=== PATIENT | male | born 1985 | race Caucasian/White ===

== ENCOUNTER 2020-12-09 11:13 | Inpatient (IN) | payer MEDICARE, MEDICAID ==
[2020-12-09] MEDS ORDERED: LORazepam 2 MG/ML SDV ONE (11:34)
[2020-12-09] MEDS ORDERED: Haloperidol Lactate 5 MG/ML SDV ONE ×2 (11:34→12:10)
[2020-12-09] MEDS ORDERED: cefTRIAXone 2 GM Vial ONE (12:11)
[2020-12-09 12:37] LABS: ANION GAP 20.4 mmol/L (5-15); CHLORIDE,CL 103 mmol/L (98-107); SODIUM,NA 138 mmol/L (136-145)
[2020-12-09] MEDS ORDERED: Sodium Chloride 0.9% 1,000 ML IV ONE (13:12)
[2020-12-09] MEDS ORDERED: Sodium Chloride 0.9% 1,000 ML IV SCH (13:15)
--- NOTE | 2020-12-09 13:21 | EDM.PDOC ---
ED HPI GENERAL MEDICAL PROBLEM - General Chief Complaint: Behavioral/Psych Time Seen by Provider: 12/09/20 12:11 Source of Information: Reports: Patient History Limitations: Reports: No Limitations - History of Present Illness INITIAL COMMENTS - FREE TEXT/NARRATIVE: Pt. presents to ER from [facility] via EMS. Nursing staff states that the patient has been minimally responsive and responding only to sternal rub this AM. Pt. had a fall yesterday from his wheelchair. They state that the patient is been gradually getting more somnolent throughout the day. Pt. has a suprapubic catheter that they state was changed this AM. The urine in the bag is extremely concentrated, brown colored, foul smelling and opaque. It is unclear when this was noted (pre or post subrapubic change). EMS states that on their arrival, pt. was combative and resistive to care. They were unable to obtain vital signs and had to restrain him to keep him on the cot. They did not administer any sedation medications. Pt. was extremely combative but awake, yelling at staff on arrival. He was attempting to spit at staff and was attempting to hit staff in face/groin. Pt. has a history of TBI, borderline intellectual functioning, dementia with behavioral disturbance, schizophrenia, neurogenic bladder (with suprapubic catheter), epilepsy, and paraplegia. It is unclear specifically what his baseline is, but he does self feed. Pt. is a DNR/DNI. Onset: Today Onset Date: 12/08/20 Location: Reports: Head, Generalized Associated Symptoms: Reports: Confusion Other Treatments FUNDING COORDINATOR: none - Related Data Allergies Allergy/AdvReac Type Severity Reaction Status Date / Time No Known Allergies Allergy Verified 12/09/20 12:20 Past Medical History Cardiovascular History: Reports: Hypertension Gastrointestinal History: Reports: Fecal Incontinence, GERD Genitourinary History: Reports: Neurogenic Bladder, Urinary Incontinence, UTI, Recurrent Neurological History: Reports: Brain Injury, Seizure Psychiatric History: Reports: Aggressive/Hostile Behaviors, Anxiety, Dementia, Developmental Delay, Schizophrenia Other Oncologic History: adrenal gland - Infectious Disease History Infectious Disease History: Reports: Novel Coronavirus - Past Surgical History Male Surgical History: Reports: Suprapubic Catheter Placement Social & Family History - Tobacco Use Tobacco Use Status *Q: Unknown Ever Used Tobacco ED ROS GENERAL - Review of Systems Review Of Systems: Unable To Obtain Reason Not Obtained: See HPI Constitutional: Reports: Fever ED EXAM, GENERAL - Physical Exam Exam: See Below Exam Limited By: No Limitations General Appearance: Alert, WD/WN, No Apparent Distress Eye Exam: Bilateral Eye: EOMI, Normal Fundi, Normal Inspection, PERRL Throat/Mouth: Normal Inspection, Normal Lips, Normal Oropharynx, No Airway Compromise Head: Other (hematoma to forehead) Neck: Normal Inspection, Supple, Full Range of Motion Respiratory/Chest: No Respiratory Distress, Lungs Clear, Normal Breath Sounds, No Accessory Muscle Use, Chest Non-Tender Cardiovascular: Normal Peripheral Pulses, Regular Rate, Rhythm, No Edema, No JVD Peripheral Pulses: 4+: Radial (L) GI/Abdominal: Soft, Non-Tender, No Distention, No Mass (Male) Exam: Other (suprapubic catheter with brown, thick, foul smelling urine in the bag. Attempting to determine when this started.) Rectal (Males) Exam: Deferred Back Exam: Normal Inspection, Full Range of Motion Extremities: Normal Inspection, Normal Range of Motion, Other (atrophy to lower extremities consistent with paraplegia.) Neurological: Confused, Disoriented, Other (combative, resistive to assessment and care) Psychiatric: Normal Affect, Normal Mood Skin Exam: Warm, Dry, Intact, Normal Color, No Rash Lymphatic: No Adenopathy Course - Vital Signs Last Recorded V/S: Last Vital Signs Temp 36.9 C 12/09/20 13:10 Pulse 80 12/09/20 13:10 Resp 20 12/09/20 13:10 BP 93/51 L 12/09/20 13:10 Pulse Ox 95 12/09/20 13:10 - Orders/Labs/Meds Orders: Active Orders 24 hr Category Date Time Status Patient Status [ADT] Routine ADT 12/09/20 13:27 Ordered Head wo Cont [CT] Stat Exams 12/09/20 12:42 Ordered CORONAVIRUS COVID-19 SNOW [MOLEC] Stat Lab 12/09/20 13:21 Ordered CULTURE BLOOD [BC] Routine Lab 12/09/20 11:59 Stop Req CULTURE BLOOD [BC] Stat Lab 12/09/20 13:03 Ordered CULTURE URINE [RM] Routine Lab 12/09/20 11:40 Received LACTATE SEPSIS W/ REFLEX [CHEM] Stat Lab 12/09/20 13:04 Ordered Sodium Chloride 0.9% @ Wide Open(1,000ml) Med 12/09/20 13:12 Ordered Sodium Chloride 0.9% [Normal Saline] 1,000 ml IV ONETIME Sodium Chloride 0.9% [Normal Saline] 1,000 ml Med 12/09/20 13:15 Ordered IV ASDIRECTED Blood Culture x2 Reflex Set [OM.PC] Stat Oth 12/09/20 13:03 Ordered Medication Orders Sodium Chloride (Normal Saline) 1,000 mls @ 999 mls/hr IV ONETIME ONE Stop: 12/09/20 14:12 Last Admin: 12/09/20 12:15 Dose: 999 mls/hr Documented by: Sodium Chloride (Normal Saline) 1,000 mls @ 250 mls/hr IV ASDIRECTED LUANNE Last Admin: 12/09/20 13:16 Dose: 250 mls/hr Documented by: Labs: Laboratory Tests 12/09/20 12/09/20 12/09/20 Range/Units 11:40 11:59 11:59 WBC 18.3 H (4.0-10.0) x10^3/uL RBC 4.15 L (4.5-6.0) x10^6/uL Hgb 13.4 L (14.0-18.0) g/dL Hct 38.9 L (40.0-52.0) % MCV 93.7 H (78.0-93.0) fL MCH 32.3 H (26.0-32.0) pg MCHC 34.4 (32.0-36.0) g/dL RDW Coeff of Tasneem 13.8 (10.0-15.0) % Plt Count 121 L (130-400) x10^3/uL Add Manual Diff Yes Neutrophils % (Manual) 73 (50-80) % Band Neutrophils % 15 H (0-6) % Reactive Lymphs % 4 H (0) % Monocytes % (Manual) 6 (2-11) % Metamyelocytes % 2 H (0) % Vacuolated Monocytes Few Toxic Granulation 1+ slight H Platelet Estimate Decreased L Macrocytosis 1+ slight H PT (9.9-12.5) SEC INR (2.0-3.5) APTT (25.6-32.8) SEC Sodium 138 (136-145) mmol/L Potassium 4.4 (3.5-5.1) mmol/L Chloride 103 (98-107) mmol/L Carbon Dioxide 19 L (21-32) mmol/L Anion Gap 20.4 H (5-15) mmol/L BUN 44 H (7-18) mg/dL Creatinine 2.3 H (0.70-1.30) mg/dL Est Cr Clr Drug Dosing TNP Estimated GFR (MDRD) 32 Glucose 159 H (70-99) mg/dL Lactic Acid (0.4-2.0) mmol/L Calcium 9.3 (8.5-10.1) mg/dL Corrected Calcium 9.9 (8.5-10.1) mg/dL Magnesium 2.0 (1.8-2.4) mg/dL Total Bilirubin 0.9 (0.2-1.0) mg/dL AST 26 (15-37) U/L ALT 22 (16-63) U/L Alkaline Phosphatase 110 (46-116) U/L C-Reactive Protein 43.3 H (<=0.9) mg/dL Total Protein 7.5 (6.4-8.2) g/dL Albumin 3.2 L (3.4-5.0) g/dL Globulin 4.3 Albumin/Globulin Ratio 0.74 TSH, Ultra Sensitive 1.450 (0.358-3.74) uIU/mL Urine Color Brown H (YELLOW) Urine Appearance Turbid H (CLEAR) Urine pH 6.0 (5.0-8.0) Ur Specific Alicia 1.020 Urine Protein >=300 H (NEGATIVE) mg/dL Urine Glucose (UA) Negative (NEGATIVE) mg/dL Urine Ketones Trace H (NEGATIVE) mg/dL Urine Occult Blood Moderate H (NEGATIVE) Urine Nitrite Negative (NEGATIVE) Urine Bilirubin Small H (NEGATIVE) Urine Urobilinogen 0.2 (0.2) EU/dL Ur Leukocyte Esterase Large H (NEGATIVE) Urine RBC 20-30 H (NOT SEEN) /HPF Urine WBC Packed H (NOT SEEN) /HPF Ur Squamous Epith Cells Not seen (NOT SEEN) /HPF Urine Bacteria Not seen (NOT SEEN) /HPF Urine Mucus Not seen (NOT SEEN) /LPF 12/09/20 12/09/20 Range/Units 11:59 11:59 WBC (4.0-10.0) x10^3/uL RBC (4.5-6.0) x10^6/uL Hgb (14.0-18.0) g/dL Hct (40.0-52.0) % MCV (78.0-93.0) fL MCH (26.0-32.0) pg MCHC (32.0-36.0) g/dL RDW Coeff of Tasneem (10.0-15.0) % Plt Count (130-400) x10^3/uL Add Manual Diff Neutrophils % (Manual) (50-80) % Band Neutrophils % (0-6) % Reactive Lymphs % (0) % Monocytes % (Manual) (2-11) % Metamyelocytes % (0) % Vacuolated Monocytes Toxic Granulation Platelet Estimate Macrocytosis PT 13.2 H (9.9-12.5) SEC INR 1.2 L (2.0-3.5) APTT 32.0 (25.6-32.8) SEC Sodium (136-145) mmol/L Potassium (3.5-5.1) mmol/L Chloride (98-107) mmol/L Carbon Dioxide (21-32) mmol/L Anion Gap (5-15) mmol/L BUN (7-18) mg/dL Creatinine (0.70-1.30) mg/dL Est Cr Clr Drug Dosing Estimated GFR (MDRD) Glucose (70-99) mg/dL Lactic Acid 4.0 H* (0.4-2.0) mmol/L Calcium (8.5-10.1) mg/dL Corrected Calcium (8.5-10.1) mg/dL Magnesium (1.8-2.4) mg/dL Total Bilirubin (0.2-1.0) mg/dL AST (15-37) U/L ALT (16-63) U/L Alkaline Phosphatase (46-116) U/L C-Reactive Protein (<=0.9) mg/dL Total Protein (6.4-8.2) g/dL Albumin (3.4-5.0) g/dL Globulin Albumin/Globulin Ratio TSH, Ultra Sensitive (0.358-3.74) uIU/mL Urine Color (YELLOW) Urine Appearance (CLEAR) Urine pH (5.0-8.0) Ur Specific Alicia Urine Protein (NEGATIVE) mg/dL Urine Glucose (UA) (NEGATIVE) mg/dL Urine Ketones (NEGATIVE) mg/dL Urine Occult Blood (NEGATIVE) Urine Nitrite (NEGATIVE) Urine Bilirubin (NEGATIVE) Urine Urobilinogen (0.2) EU/dL Ur Leukocyte Esterase (NEGATIVE) Urine RBC (NOT SEEN) /HPF Urine WBC (NOT SEEN) /HPF Ur Squamous Epith Cells (NOT SEEN) /HPF Urine Bacteria (NOT SEEN) /HPF Urine Mucus (NOT SEEN) /LPF Meds: Medications Generic Name Dose Route Start Last Admin Trade Name Freq PRN Reason Stop Dose Admin Sodium Chloride 1,000 mls @ 999 mls/hr 12/09/20 13:12 12/09/20 12:15 Normal Saline IV 12/09/20 14:12 999 mls/hr ONETIME ONE Administration Sodium Chloride 1,000 mls @ 250 mls/hr 12/09/20 13:15 12/09/20 13:16 Normal Saline IV 250 mls/hr ASDIRECTED LUANNE Administration Discontinued Medications Generic Name Dose Route Start Last Admin Trade Name Freq PRN Reason Stop Dose Admin Ceftriaxone Sodium Confirm 12/09/20 12:11 12/09/20 12:15 Ceftriaxone 2 Gm Vial Administered 12/09/20 12:12 2 gm Dose Administration 2 gm .ROUTE .STK-MED ONE Haloperidol Lactate Confirm 12/09/20 11:34 Haloperidol Lactate 5 Mg/Ml Sdv Administered 12/09/20 11:35 Dose 5 mg .ROUTE .STK-MED ONE Haloperidol Lactate Confirm 12/09/20 12:10 Haloperidol Lactate 5 Mg/Ml Sdv Administered 12/09/20 12:11 Dose 5 mg .ROUTE .STK-MED ONE Lorazepam Confirm 12/09/20 11:34 Lorazepam 2 Mg/Ml Sdv Administered 12/09/20 11:35 Dose 2 mg .ROUTE .STK-MED ONE - Radiology Interpretation Free Text/Narrative:: CT brain without contrast obtained and was negative for acute pathology. - Re-Assessments/Exams Free Text/Narrative Re-Assessment/Exam: Pt. was extremely combative toward staff on arrival to ER. Pt. has to be physically restrained and was given Haldol 5mg IM and ativan 2mg IM. Pt. did become less combative and IV access was able to be achieved. Initially attempted to access the patient's port but no blood could be aspirated from the port. Pt. was given another 5 mg of haldol IV. Pt. was then much more cooperative and was able to go to CT. Covid 19 swab was obtained and patient became agitated again, attempting to climb out of bed/fight staff. Pt. was given 1 mg of Ativan IV and pt. again was less agitated. To note, pt. does receive ativan, haldol, and zyprexa daily at the special care unit. VS as follows after sedation: BP 140/104, HR 80, RR 20, temp 98.4, O2 sat 98% on RA. Pt. was noted to have a lactic acid of 4.0, WBCs 18.3, and CRP 43.3. He has EVA with creat 2.3 and BUN 44. They were 0.79 and 17 on 10/25/2020, respectively. Pt. was also given rocephin 2gm IV and a liter of normal saline. Pt. was then placed on normal saline at 250ml/hr. for the next liter. Please refer to Greg Rodriguez's orders for further fluid orders. Departure - Departure Time of Disposition: 13:46 Disposition: Home, Self-Care 01 Condition: Critical Clinical Impression: UTI (urinary tract infection), Sepsis, Lactic acidosis, EVA (acute kidney injury) - Discharge Information Referrals: Estella Donahue MD [Primary Care Provider] - Forms: ED Department Discharge Sepsis Event Note (ED) - Evaluation Sepsis Screening Result: No Definite Risk - Focused Exam Vital Signs: Vital Signs Temp Pulse Resp BP Pulse Ox 12/09/20 13:10 36.9 C 80 20 93/51 L 95 12/09/20 12:11 37.4 C 80 20 89/39 L 99 - My Orders Last 24 Hours: My Active Orders 12/09/20 11:40 CULTURE URINE [RM] Routine 12/09/20 11:59 CULTURE BLOOD [BC] Routine 12/09/20 12:42 Head wo Cont [CT] Stat 12/09/20 13:03 CULTURE BLOOD [BC] Stat Blood Culture x2 Reflex Set [OM.PC] Stat 12/09/20 13:04 LACTATE SEPSIS W/ REFLEX [CHEM] Stat 12/09/20 13:12 Sodium Chloride 0.9% @ Wide Open(1,000ml) Sodium Chloride 0.9% [Normal Saline] 1,000 ml IV ONETIME 12/09/20 13:15 Sodium Chloride 0.9% [Normal Saline] 1,000 ml IV ASDIRECTED 12/09/20 13:21 CORONAVIRUS COVID-19 SNOW [MOLEC] Stat 12/09/20 13:27 Patient Status [ADT] Routine - Assessment/Plan Admission H&P: Please use this note as an admission H&P Last 24 Hours: My Active Orders 12/09/20 11:40 CULTURE URINE [RM] Routine 12/09/20 11:59 CULTURE BLOOD [BC] Routine 12/09/20 12:42 Head wo Cont [CT] Stat 12/09/20 13:03 CULTURE BLOOD [BC] Stat Blood Culture x2 Reflex Set [OM.PC] Stat 12/09/20 13:04 LACTATE SEPSIS W/ REFLEX [CHEM] Stat 12/09/20 13:12 Sodium Chloride 0.9% @ Wide Open(1,000ml) Sodium Chloride 0.9% [Normal Saline] 1,000 ml IV ONETIME 12/09/20 13:15 Sodium Chloride 0.9% [Normal Saline] 1,000 ml IV ASDIRECTED 12/09/20 13:21 CORONAVIRUS COVID-19 SNOW [MOLEC] Stat 12/09/20 13:27 Patient Status [ADT] Routine Plan: Pt. will be admitted acutely. Continue IV fluids at 250ml/hr for now. Sepsis protocol and lactic acid reflex orders are in place. Continue IV rocephin 2gm daily. We are attempting to determine when the patient's urine became so purulent. It certainly seems like this has been present for some time. Will keep his suprapubic catheter in place for now unless we find this started today. Pt. is a code 2, DNR/DNI. correction staff is notifying family. He is critical ly ill. Will continue with IV ativan if needed for further sedation. RAJ Diana will be admitting the patient. Please refer to his orders.
--- NOTE | 2020-12-09 13:29 | CT ---
[id number] CT/CT Head WO IV EXAM: NONCONTRAST HEAD CT INDICATION: DECREASED LOC, HISTORY OF TBI. COMPARISON: None. DISCUSSION: Streak artifact limits assessment of the inferior frontal and temporal lobes bilaterally. Right anterior scalp soft tissue swelling versus scarring. No acute hemorrhage, mass effect, midline shift, hydrocephalus, extra-axial collection or acute territorial infarct is identified. The orbits and paranasal sinuses are unremarkable. IMPRESSION: 1. Right scalp soft tissue swelling. 2. Otherwise negative exam. Alex Brownlee MD 12/09/20 [id number] Thank you for allowing us to participate in the care of your patient.
[2020-12-09] MEDS ORDERED: LORazepam 2 MG/ML SDV IVPUSH ONE ×2 (13:36→15:49)
[2020-12-09] MEDS ORDERED: Ondansetron 4 MG/2 ML SDV IV PRN (14:06)
[2020-12-09] MEDS ORDERED: Sodium Chloride 0.9% 1,000 ML IV STA (14:11)
[2020-12-09] MEDS ORDERED: Flumazenil 0.1 MG/ML 5 ML MDV IVPUSH PRN ×2 (14:17→15:49)
[2020-12-09] MEDS ORDERED: diphenhydrAMINE 25 MG Cap PO PRN (14:30)
[2020-12-09] MEDS ORDERED: Fosphenytoin 500 MG.PE/10 ML SDV IM PRN (14:30)
[2020-12-09] MEDS ORDERED: Acetaminophen 325 MG Tab PO PRN (14:30)
[2020-12-09] MEDS ORDERED: Heparin Sodium 100 Units/ML 3 ML Syringe FLUSH SCH (14:30)
[2020-12-09] MEDS ORDERED: Baclofen 10 MG Tab PO PRN (14:30)
[2020-12-09] MEDS ORDERED: Levofloxacin/Dextrose 5%-Water 500 MG in Premix Bag 1 BAG IV ONE (14:45)
[2020-12-09] MEDS: Sodium Chloride 0.9% 1,000 ML IV SCH ×2 (15:31→23:09)
[2020-12-09] MEDS: Haloperidol Lactate 5 MG/ML SDV IV PRN ×5 (15:37→23:09)
[2020-12-09] MEDS: LORazepam 2 MG/ML SDV IVPUSH PRN ×4 (15:40→22:11)
[2020-12-09] MEDS ORDERED: Haloperidol Lactate 5 MG/ML SDV IV STA (15:48)
[2020-12-09] MEDS ORDERED: Phenytoin 100 MG Cap.ER PO SCH (18:00)
[2020-12-09] MEDS: Gemfibrozil 600 MG Tab PO SCH (19:50)
[2020-12-09] MEDS ORDERED: CLOZAPINE 200 MG PO SCH (20:00)
[2020-12-09] MEDS: diphenhydrAMINE 25 MG Cap PO SCH (22:49)
[2020-12-09] MEDS: Nystatin Crm 30 GM Tube TOP SCH (22:49)
[2020-12-09] MEDS: Baclofen 10 MG Tab PO SCH (22:49)
[2020-12-09] MEDS: Lactulose Soln 10 GM/15 ML 30 ML UD Cup PO SCH (22:49)
[2020-12-10] MEDS: LORazepam 2 MG/ML SDV IVPUSH PRN ×4 (01:13→08:19)
[2020-12-10] MEDS: Sodium Chloride 0.9% 1,000 ML IV SCH ×2 (03:56→08:23)
[2020-12-10] MEDS: Haloperidol Lactate 5 MG/ML SDV IV PRN ×2 (07:52→09:50)
[2020-12-10] MEDS ORDERED: OLANZapine 10 MG Tab PO SCH (08:00)
[2020-12-10] MEDS ORDERED: Ascorbic Acid 500 MG Tab PO SCH (08:00)
[2020-12-10] MEDS ORDERED: Pantoprazole 40 MG Tab.CR PO SCH (08:00)
[2020-12-10] MEDS ORDERED: Propranolol 60 MG Cap.ER PO SCH (08:00)
[2020-12-10] MEDS ORDERED: Phenytoin 100 MG Cap.ER PO SCH ×2 (08:00→16:00)
[2020-12-10] MEDS ORDERED: Lithium Carbonate 450 MG Tab.ER PO SCH (08:00)
[2020-12-10] MEDS: Sodium Chloride 0.9% 10 ML Syringe FLUSH PRN ×2 (08:20→09:50)
[2020-12-10 08:48] LABS: ANION GAP 17.5 mmol/L (5-15)
[2020-12-10] MEDS: Baclofen 10 MG Tab PO SCH (10:09)
[2020-12-10] MEDS: Gemfibrozil 600 MG Tab PO SCH (10:09)
[2020-12-10] MEDS: Lactulose Soln 10 GM/15 ML 30 ML UD Cup PO SCH (10:09)
[2020-12-10] MEDS: diphenhydrAMINE 25 MG Cap PO SCH (10:09)
[2020-12-10] MEDS: Nystatin Crm 30 GM Tube TOP SCH (10:10)
[2020-12-10] MEDS: PROPRANOLOL 80 MG PO SCH (15:33)
[2020-12-10] MEDS ORDERED: Levofloxacin/Dextrose 5%-Water 500 MG in Premix Bag 1 BAG IV SCH (16:00)
--- NOTE | 2020-12-10 22:07 | DISCH ---
ADMITTING DIAGNOSES: 1. Sepsis secondary to urinary tract infection. 2. Lactic acidosis. 3. Acute kidney injury. 4. Uremia. 5. Leukocytosis. DISCHARGE DIAGNOSES: 1. Sepsis secondary to urinary tract infection. 2. Lactic acidosis. 3. Acute kidney injury. 4. Uremia. 5. Leukocytosis. 6. Bacteremia 7. Closed Head Injury with unknown LOC HISTORY OF PRESENT ILLNESS: This 35-year-old male patient was brought to the emergency room at [facility] from the local [facility] for unresponsiveness and a closed head injury from a fall that happened yesterday. The EMS crew was unable to get vital signs as the patient was very combative. Upon arrival to the emergency room, the patient continued to be combative, therefore he was given IM Haldol and IM lorazepam. Once the patient was more calm, IV was established. Blood was drawn. CT of the head was obtained which did not show any acute pathology. HOSPITAL COURSE: The patient remained combative, requiring IV Haldol and lorazepam. The patient did have fevers on admission, however, these improved. The patient was hypotensive with blood pressures in the 90s, which rebounded to blood pressures in the 100s after fluid resuscitation. The patient did have positive blood cultures, which showed gram-negative rods. The patient's urine also cultured gram-negative rods. The patient was unable to take p.o. medications due to his behavior. The patient was started on Levaquin 500 mg IV daily. CONSULTATION: Case Management. DIET: Regular. ACTIVITY: Bed rest. REVIEW OF SYSTEMS: Unable to obtain due to patient's condition. DISCHARGE PHYSICAL EXAMINATION: Vital Signs: Temperature 98.4, pulse 83, blood pressure 109/56, respiratory rate 24, oxygen saturation 97% on room air. Weight 188.9 pounds, height 5 feet 10 inches. Skin: Intact, warm and dry. The patient does have a black dot on the right heel. Respiratory: Tachypneic, scattered rhonchi throughout. Cardiovascular: Regular rate and rhythm, no murmur. Gastrointestinal: Bowel sounds are hypoactive x4. Abdomen is nontender. Neurological: The patient vacillates between lethargy and being combative. The patient is disoriented. The patient is alert with sternal rubs. DISCHARGE LABORATORY WORK: 1. CBC: White blood cell count 7.5, hemoglobin 10.2, hematocrit 30.4, platelets 102,000. 2. BMP: Sodium 147, potassium 3.5, chloride 115, CO2 of 18, anion gap 17.5, BUN 44, creatinine 1.7, GFR 46, glucose 134, calcium 8.8. 3. CRP 52.3. DISCHARGE MEDICATIONS: 1. Melatonin 6 mg 1 tablet p.o. daily at bedtime. 2. Fish oil 1 tablet p.o. twice daily. 3. Haloperidol 5 mg 1 tablet p.o. every 12 hours. 4. Levocarnitine 1000 mg 1 tablet p.o. 3 times daily. 5. Lorazepam 2 mg 1 tablet p.o. twice daily. 6. Acetaminophen 650 mg 1 tablet p.o. every 4 hours as needed. 7. Vitamin C 500 mg 1 tablet p.o. daily. 8. Baclofen 20 mg 1 tablet p.o. twice daily. 9. Baclofen 20 mg 1 tablet p.o. daily as needed. 10.Clozapine 325 mg 1 tablet p.o. daily. 11.Diphenhydramine 50 mg 1 capsule p.o. twice daily. 12.Diphenhydramine 50 mg 1 capsule p.o. every 4 hours as needed. 13.Fosphenytoin 600 mg IM daily. 14.Lopid 600 mg 1 tablet p.o. twice daily with meals. 15.Lactulose 15 grams p.o. twice daily. 16.[place] 450 mg 1 tablet p.o. daily. 17.Zyprexa 10 mg 1 tablet p.o. daily. 18.Protonix 40 mg 1 tablet p.o. daily. 19.Dilantin 100 mg 1 tablet p.o. daily. 20.Dilantin 300 mg 1 tablet p.o. daily at bedtime. 21.Propranolol 180 mg 1 tablet p.o. daily. 22.Propranolol 200 mg p.o. twice daily. DISCHARGE DIAGNOSES: 1. Sepsis secondary to urinary tract infection. 2. Bacteremia. 3. Closed head injury with unknown LOC. 4. Uremia. 5. Traumatic brain injury with behavioral disturbance. PLAN: Given the patient's positive blood cultures and hypotension, the patient will be transferred to [facility] today. The accepting provider is Dr. Weiner. All questions were answered. The patient was transported via ALS ground. The patient was discharged in hemodynamically stable condition. TB: 12/10/2020 20:18:41 MODL: 12/10/2020 21:59:15 /[id number]
== END 2020-12-10 10:00 | disposition short-term general hospital (02) | DRG 698 ==
LOC: VM.ED 11:13 → VM.MS 13:27
PROVIDERS: ADMIT Nurse Practitioner Family; ATTEND Family Medicine
DX: A41.9 Sepsis, unspecified organism (principal); T83.510A Infection and inflammatory reaction due to cystostomy catheter, initial encounter; A41.50 Gram-negative sepsis, unspecified; S06.9X9A Unspecified intracranial injury with loss of consciousness of unspecified duration, initial encounter; N39.0 Urinary tract infection, site not specified; N17.9 Acute kidney failure, unspecified; E87.2 Acidosis; Z93.6 Other artificial openings of urinary tract status; F91.9 Conduct disorder, unspecified; Z66 Do not resuscitate; F32.9 Major depressive disorder, single episode, unspecified; R62.50 Unspecified lack of expected normal physiological development in childhood; I10 Essential (primary) hypertension; K21.9 Gastro-esophageal reflux disease without esophagitis; Z20.822 Contact with and (suspected) exposure to COVID-19; R15.9 Full incontinence of feces; N31.9 Neuromuscular dysfunction of bladder, unspecified; R32 Unspecified urinary incontinence; F41.9 Anxiety disorder, unspecified; F03.90 Unspecified dementia, unspecified severity, without behavioral disturbance, psychotic disturbance, mood disturbance, and anxiety; F20.9 Schizophrenia, unspecified; W19.XXXA Unspecified fall, initial encounter; Y83.8 Other surgical procedures as the cause of abnormal reaction of the patient, or of later complication, without mention of misadventure at the time of the procedure; Z87.440 Personal history of urinary (tract) infections; Z86.16 Personal history of COVID-19; Z79.899 Other long term (current) drug therapy
CPT/HCPCS: 36415; 70450; 80048; 80053; 81001; 82140; 83605; 83735; 84443; 85025; 85610; 85730; 86140; 87040; 87077; 87086; 87088; 87186; 99223; 99238; 99284; J0696; J1630; J1956; J2060; J7030; Q2009; U0002

== ENCOUNTER 2022-01-21 11:32 | Emergency (ER) | payer MEDICARE, MEDICAID ==
[2022-01-21 12:29] LABS: CHLORIDE,CL 109 mmol/L (98-107); SODIUM,NA 143 mmol/L (136-145)
[2022-01-21 12:30] LABS: ANION GAP 14.9 mmol/L (5-15); ESTIMATED GFR 112 mL/min (>=60)
== END 2022-01-21 14:44 | disposition home or self-care (01) ==
LOC: VM.ED 11:32
DX: R53.83 Other fatigue (principal); I10 Essential (primary) hypertension; K21.9 Gastro-esophageal reflux disease without esophagitis; Z86.16 Personal history of COVID-19; Z79.899 Other long term (current) drug therapy
CPT/HCPCS: 36415; 71045; 80053; 81001; 83605; 83880; 84145; 84484; 85025; 86140; 87040; 87086; 87088; 87186; 99284; 99284-25

== ENCOUNTER 2023-03-21 19:37 | Emergency (ER) | payer MEDICARE, MEDICAID ==
[2023-03-21] MEDS ORDERED: Sodium Chloride 0.9% 10 ML Syringe FLUSH PRN (19:58)
[2023-03-21 20:11] LABS: HEMATOCRIT 36.4 % (40.0-52.0); HEMOGLOBIN 12.5 g/dL (14.0-18.0); IMMATURE GRAN ABSOLUTE AUTO 0.12 x10^3/uL (0.00-0.07); LYMPHOCYTES ABSOLUTE AUTO 1.6 x10^3/uL (1.0-4.8); LYMPHOCYTES PERCENT AUTO 21.9 % (25.0-50.0); MEAN CORPUSCULAR HEMOGLOBIN 32.5 pg (26.0-32.0); MEAN CORPUSCULAR HGB CONC 34.3 g/dL (32.0-36.0); MEAN CORPUSCULAR VOLUME 94.5 fL (78.0-93.0); MONOCYTES ABSOLUTE AUTO 0.6 x10^3/uL (0.0-0.8); MONOCYTES PERCENT AUTO 8.4 % (2.0-11.0); PLATELET COUNT,PLT 147 x10^3/uL (130-400); RED BLOOD CELL COUNT 3.85 x10^6/uL (4.5-6.0); WHITE BLOOD CELL COUNT,WBC 7.3 x10^3/uL (4.0-10.0)
[2023-03-21 20:13] LABS: BILIRUBIN,URINE NEGATIVE (NEGATIVE); COLOR,URINE LIGHT YELLOW (YELLOW); GLUCOSE,URINE NEGATIVE (NEGATIVE); KETONES,URINE NEGATIVE (NEGATIVE); LEUKOCYTE ESTERASE,URINE LARGE (NEGATIVE); NITRITE,URINE NEGATIVE (NEGATIVE); OCCULT BLOOD,URINE NEGATIVE (NEGATIVE); PROTEIN,URINE NEGATIVE (NEGATIVE); UROBILINOGEN,URINE 0.2 EU/dL (0.2)
[2023-03-21 20:20] LABS: APPEARANCE,URINE SLIGHTLY CLOUDY (CLEAR)
[2023-03-21 20:23] LABS: BACTERIA,URINE RARE /HPF (NOT SEEN); MUCUS,URINE OCCASIONAL /LPF (NOT SEEN); RBC,URINE 0-5 /HPF (NOT SEEN); SQUAMOUS EPITHELIAL CELLS,UR NOT SEEN /HPF (NOT SEEN); WBC,URINE 20-30 /HPF (NOT SEEN)
[2023-03-21 20:23] LABS: INR 1.1 (2.0-3.5); PROTHROMBIN TIME 11.7 SEC (9.5-12.2)
[2023-03-21 20:29] LABS: LACTIC ACID 1.2 mmol/L (0.4-2.0)
[2023-03-21 20:38] LABS: A/G RATIO 0.69; ALANINE AMINOTRANSFERASE,ALT 10 U/L (16-63); ALBUMIN 2.9 g/dL (3.4-5.0); ALKALINE PHOSPHATASE 255 U/L (46-116); ASPARTATE AMNIOTRANSFERASE,AST 11 U/L (15-37); BILIRUBIN TOTAL 0.4 mg/dL (0.2-1.0); BLOOD UREA NITROGEN,BUN 32 mg/dL (7-18); C-REACTIVE PROTEIN 1.61 mg/dL (<=0.30); CALCIUM 9.2 mg/dL (8.5-10.1); CARBON DIOXIDE,CO2 23 mmol/L (21-32); CHLORIDE,CL 109 mmol/L (98-107); GLUCOSE RANDOM 119 mg/dL (70-99); MAGNESIUM 2.4 mg/dL (1.8-2.4); POTASSIUM,K 3.9 mmol/L (3.5-5.1); PROTEIN TOTAL,TP 7.1 g/dL (6.4-8.2); SODIUM,NA 144 mmol/L (136-145); TSH ULTRASENSITIVE 1.715 uIU/mL (0.358-3.74)
[2023-03-21 20:39] LABS: ANION GAP 15.9 mmol/L (5-15); ESTIMATED GFR 98 mL/min (>=60)
[2023-03-21] MEDS: cefTRIAXone 1 GM Vial IVPUSH ONE (20:45)
== END 2023-03-21 22:00 ==
LOC: VM.ED 19:37
DX: N39.0 Urinary tract infection, site not specified (principal); E78.00 Pure hypercholesterolemia, unspecified; I10 Essential (primary) hypertension; K21.9 Gastro-esophageal reflux disease without esophagitis; Z79.899 Other long term (current) drug therapy; Z86.16 Personal history of COVID-19
CPT/HCPCS: 36415; 51705; 70450; 71045; 80053; 80178; 81001; 83605; 83735; 84443; 84484; 85025; 85610; 85730; 86140; 87086; 87088; 87186; 93005; 93010; 96374; 99284; 99285; J0696

== ENCOUNTER 2023-11-05 03:19 | Emergency (ER) | payer MEDICARE, MEDICAID | END 2023-11-05 03:42 | LOC: VM.ED 03:19 | DX: T83.028A Displacement of other urinary catheter, initial encounter (principal); I10 Essential (primary) hypertension; E78.00 Pure hypercholesterolemia, unspecified; K21.9 Gastro-esophageal reflux disease without esophagitis; Z86.16 Personal history of COVID-19; Y73.2 Prosthetic and other implants, materials and accessory gastroenterology and urology devices associated with adverse incidents | CPT/HCPCS: 51702; 99283; 99284 ==

== ENCOUNTER 2024-06-13 16:12 | Emergency (ER) | payer MEDICARE, MEDICAID ==
[2024-06-13 16:45] LABS: BASOPHILS PERCENT AUTO 0.1 % (0.2-1.2); HEMATOCRIT 37.6 % (40.0-52.0); HEMOGLOBIN 12.4 g/dL (14.0-18.0); IMMATURE GRAN ABSOLUTE AUTO 0.01 x10^3/uL (0.00-0.07); LYMPHOCYTES ABSOLUTE AUTO 1.5 x10^3/uL (1.0-4.8); LYMPHOCYTES PERCENT AUTO 16.5 % (25.0-50.0); MEAN CORPUSCULAR HEMOGLOBIN 30.5 pg (26.0-32.0); MEAN CORPUSCULAR VOLUME 92.6 fL (78.0-93.0); MONOCYTES PERCENT AUTO 11.1 % (2.0-11.0); NEUTROPHILS ABSOLUTE AUTO 6.4 x10^3/uL (1.8-7.7); NEUTROPHILS PERCENT AUTO 72.2 % (50.0-80.0); PLATELET COUNT,PLT 132 x10^3/uL (130-400); RED BLOOD CELL COUNT 4.06 x10^6/uL (4.5-6.0); WHITE BLOOD CELL COUNT,WBC 8.8 x10^3/uL (4.0-10.0)
[2024-06-13 16:48] LABS: APPEARANCE,URINE SLIGHTLY CLOUDY (CLEAR); BILIRUBIN,URINE NEGATIVE (NEGATIVE); COLOR,URINE YELLOW (YELLOW); GLUCOSE,URINE NEGATIVE (NEGATIVE); KETONES,URINE NEGATIVE (NEGATIVE); LEUKOCYTE ESTERASE,URINE LARGE (NEGATIVE); NITRITE,URINE NEGATIVE (NEGATIVE); OCCULT BLOOD,URINE TRACE-LYSED (NEGATIVE); PROTEIN,URINE NEGATIVE (NEGATIVE); UROBILINOGEN,URINE 0.2 EU/dL (0.2)
[2024-06-13 16:53] LABS: AMPHETAMINE, URINE NEGATIVE (NEGATIVE); BARBITUATES,URINE POSITIVE (NEGATIVE); BENZODIAZEPINES,URINE POSITIVE (NEGATIVE); BUPRENORPHINE,URINE NEGATIVE (NEGATIVE); COCAINE,URINE NEGATIVE (NEGATIVE); MARIJUANA,URINE NEGATIVE (NEGATIVE); METHADONE,URINE NEGATIVE (NEGATIVE); METHAMPHETAMINE,URINE NEGATIVE (NEGATIVE); METHYLENEDIOXYMETHAMP,UR NEGATIVE (NEGATIVE); OPIATES,URINE NEGATIVE (NEGATIVE); OXYCODONE,URINE NEGATIVE (NEGATIVE); PHENCYCLIDINE,URINE NEGATIVE
[2024-06-13 16:58] LABS: BACTERIA,URINE MANY /HPF (NOT SEEN); MUCUS,URINE NOT SEEN /LPF (NOT SEEN); RBC,URINE NOT SEEN /HPF (NOT SEEN); SQUAMOUS EPITHELIAL CELLS,UR FEW /HPF (NOT SEEN)
[2024-06-13 17:15] LABS: A/G RATIO 0.85; ALANINE AMINOTRANSFERASE,ALT 7 U/L (16-63); ALBUMIN 3.4 g/dL (3.4-5.0); ALKALINE PHOSPHATASE 275 U/L (46-116); ASPARTATE AMNIOTRANSFERASE,AST 11 U/L (15-37); BILIRUBIN TOTAL 0.3 mg/dL (0.2-1.0); BLOOD UREA NITROGEN,BUN 39 mg/dL (7-18); CALCIUM 9.6 mg/dL (8.5-10.1); CARBON DIOXIDE,CO2 24 mmol/L (21-32); CHLORIDE,CL 104 mmol/L (98-107); CREATININE 1.1 mg/dL (0.70-1.30); EST CRCL DRUG DOSING (CG) 82.63 mL/min; GLUCOSE RANDOM 112 mg/dL (70-99); MAGNESIUM 1.7 mg/dL (1.8-2.4); POTASSIUM,K 4.2 mmol/L (3.5-5.1); PROTEIN TOTAL,TP 7.4 g/dL (6.4-8.2); SODIUM,NA 140 mmol/L (136-145); TSH ULTRASENSITIVE 1.774 uIU/mL (0.358-3.74)
[2024-06-13 17:18] LABS: ACETAMINOPHEN 0 ug/ml (10-30); ANION GAP 16.2 mmol/L (5-15); ESTIMATED GFR 86 mL/min (>=60); ETHANOL BLOOD MEDICAL < 3 mg/dL (0-3)
[2024-06-13] MEDS: Magnesium Oxide 400 MG Tab PO ONE (17:57)
== END 2024-06-13 18:11 ==
LOC: VM.ED 16:12 → SUPCPDRO 16:12 → VM.ED 18:11
DX: F20.9 Schizophrenia, unspecified (principal); E83.42 Hypomagnesemia; R79.89 Other specified abnormal findings of blood chemistry; I10 Essential (primary) hypertension; Z86.16 Personal history of COVID-19; Z79.899 Other long term (current) drug therapy
CPT/HCPCS: 36415; 80053; 80143; 80179; 80305-QW; 80307; 81001; 83735; 84443; 85025; 87086; 87088; 87186; 99284; 99285; A9270-GY

== ENCOUNTER 2024-08-25 12:11 | Emergency (ER) | payer MEDICARE, MEDICAID ==
[2024-08-25 13:28] LABS: HEMATOCRIT 39.5 % (40.0-52.0); IMMATURE GRAN ABSOLUTE AUTO 0.03 x10^3/uL (0.00-0.07); LYMPHOCYTES ABSOLUTE AUTO 1.3 x10^3/uL (1.0-4.8); LYMPHOCYTES PERCENT AUTO 16.3 % (25.0-50.0); MEAN CORPUSCULAR HEMOGLOBIN 30.1 pg (26.0-32.0); MEAN CORPUSCULAR HGB CONC 32.9 g/dL (32.0-36.0); MEAN CORPUSCULAR VOLUME 91.4 fL (78.0-93.0); MONOCYTES ABSOLUTE AUTO 0.7 x10^3/uL (0.0-0.8); MONOCYTES PERCENT AUTO 8.9 % (2.0-11.0); NEUTROPHILS ABSOLUTE AUTO 5.9 x10^3/uL (1.8-7.7); NEUTROPHILS PERCENT AUTO 74.4 % (50.0-80.0); PLATELET COUNT,PLT 139 x10^3/uL (130-400); RED BLOOD CELL COUNT 4.32 x10^6/uL (4.5-6.0)
[2024-08-25] MEDS: Lactated Ringers 1,000 ML IV ONE (13:30)
[2024-08-25 13:43] LABS: A/G RATIO 0.67; ALANINE AMINOTRANSFERASE,ALT 13 U/L (16-63); ALBUMIN 3.5 g/dL (3.4-5.0); ALKALINE PHOSPHATASE 360 U/L (46-116); ANION GAP 18.1 mmol/L (5-15); ASPARTATE AMNIOTRANSFERASE,AST 17 U/L (15-37); BILIRUBIN TOTAL 0.5 mg/dL (0.2-1.0); BLOOD UREA NITROGEN,BUN 32 mg/dL (7-18); C-REACTIVE PROTEIN 1.45 mg/dL (<=0.50); CALCIUM 10.7 mg/dL (8.5-10.1); CARBON DIOXIDE,CO2 24 mmol/L (21-32); CHLORIDE,CL 110 mmol/L (98-107); CREATININE 1.3 mg/dL (0.70-1.30); ESTIMATED GFR 71 mL/min (>=60); GLUCOSE RANDOM 105 mg/dL (70-99); LIPASE 241 U/L (19-71); POTASSIUM,K 4.1 mmol/L (3.5-5.1); PROTEIN TOTAL,TP 8.7 g/dL (6.4-8.2); SODIUM,NA 148 mmol/L (136-145)
[2024-08-25 14:06] LABS: APPEARANCE,URINE CLOUDY (CLEAR); BILIRUBIN,URINE NEGATIVE (NEGATIVE); COLOR,URINE YELLOW (YELLOW); GLUCOSE,URINE NEGATIVE (NEGATIVE); KETONES,URINE NEGATIVE (NEGATIVE); LEUKOCYTE ESTERASE,URINE LARGE (NEGATIVE); NITRITE,URINE NEGATIVE (NEGATIVE); OCCULT BLOOD,URINE LARGE (NEGATIVE); PH,URINE 8.5 (5.0-8.0); PROTEIN,URINE >=300 mg/dL (NEGATIVE); UROBILINOGEN,URINE 0.2 EU/dL (0.2)
[2024-08-25 14:13] LABS: AMORPHOUS SEDIMENT,URINE MODERATE; BACTERIA,URINE MANY /HPF (NOT SEEN); WBC,URINE 20-30 /HPF (NOT SEEN)
[2024-08-25 14:14] LABS: SQUAMOUS EPITHELIAL CELLS,UR FEW /HPF (NOT SEEN)
[2024-08-25] MEDS: Ciprofloxacin in D5W 400 MG in Premix Bag 1 BAG IV ONE (14:20)
[2024-08-25 14:22] LABS: PRO B-TYPE NATRIUR PEPT,BNPPRO 75 pg/mL (<=125)
== END 2024-08-25 16:52 ==
LOC: VM.ED 12:11
DX: E86.0 Dehydration (principal); N39.0 Urinary tract infection, site not specified; L89.90 Pressure ulcer of unspecified site, unspecified stage; I10 Essential (primary) hypertension; K21.9 Gastro-esophageal reflux disease without esophagitis; Z86.16 Personal history of COVID-19; Z79.899 Other long term (current) drug therapy
CPT/HCPCS: 36415; 71045; 74176; 80053; 81001; 83605; 83690; 83880; 84484; 85025; 86140; 87040; 87086; 87088; 87186; 96361; 96365; 99284; 99285-25; J0744; J7120

== ENCOUNTER 2024-11-11 13:16 | Inpatient (IN) | payer MEDICARE, MEDICAID ==
[2024-11-11 13:34] LABS: EOSINOPHILS PERCENT AUTO 0.1 % (0.0-4.0); HEMATOCRIT 33.2 % (40.0-52.0); HEMOGLOBIN 11.1 g/dL (14.0-18.0); IMMATURE GRAN ABSOLUTE AUTO 0.03 x10^3/uL (0.00-0.07); LYMPHOCYTES ABSOLUTE AUTO 1.1 x10^3/uL (1.0-4.8); LYMPHOCYTES PERCENT AUTO 11.1 % (25.0-50.0); MEAN CORPUSCULAR HEMOGLOBIN 30.8 pg (26.0-32.0); MEAN CORPUSCULAR HGB CONC 33.4 g/dL (32.0-36.0); MEAN CORPUSCULAR VOLUME 92.2 fL (78.0-93.0); MONOCYTES ABSOLUTE AUTO 0.6 x10^3/uL (0.0-0.8); MONOCYTES PERCENT AUTO 5.3 % (2.0-11.0); NEUTROPHILS ABSOLUTE AUTO 8.6 x10^3/uL (1.8-7.7); NEUTROPHILS PERCENT AUTO 83.2 % (50.0-80.0); PLATELET COUNT,PLT 149 x10^3/uL (130-400); WHITE BLOOD CELL COUNT,WBC 10.3 x10^3/uL (4.0-10.0)
[2024-11-11 13:40] LABS: HCO3 VENOUS,POC 20 mmol/L (22-29); O2 SATURATION VENOUS,POC 92 %; PCO2 VENOUS,POC 35 mmHg (41-51); PH VENOUS,POC 7.36 pH (7.32-7.43); PO2 VENOUS,POC 65 mmHg
[2024-11-11] MEDS: Lactated Ringers 1,000 ML IV SCH ×2 (13:45→18:29)
[2024-11-11] MEDS: LORazepam 2 MG/ML SDV IVPUSH ONE (14:00)
[2024-11-11 14:03] LABS: A/G RATIO 0.65; ALANINE AMINOTRANSFERASE,ALT 8 U/L (16-63); ALBUMIN 3.1 g/dL (3.4-5.0); ALKALINE PHOSPHATASE 239 U/L (46-116); ANION GAP 13.9 mmol/L (5-15); ASPARTATE AMNIOTRANSFERASE,AST 13 U/L (15-37); BILIRUBIN TOTAL 0.4 mg/dL (0.2-1.0); BLOOD UREA NITROGEN,BUN 31 mg/dL (7-18); CALCIUM 10.6 mg/dL (8.5-10.1); CARBON DIOXIDE,CO2 25 mmol/L (21-32); CHLORIDE,CL 110 mmol/L (98-107); CREATININE 1.1 mg/dL (0.70-1.30); ESTIMATED GFR 86 mL/min (>=60); GLUCOSE RANDOM 123 mg/dL (70-99); MAGNESIUM 2.1 mg/dL (1.8-2.4); POTASSIUM,K 3.9 mmol/L (3.5-5.1); PROTEIN TOTAL,TP 7.9 g/dL (6.4-8.2); SODIUM,NA 145 mmol/L (136-145)
[2024-11-11] MEDS: cefTRIAXone 2 GM Vial IVPUSH ONE (14:30)
[2024-11-11] MEDS: Azithromycin 500 MG in Sodium Chloride 0.9% 250 ML IV ONE (14:59)
[2024-11-11] MEDS ORDERED: Acetaminophen 325 MG Tab PO PRN (16:45)
[2024-11-11] MEDS ORDERED: Lactated Ringers 1,000 ML IV SCH (17:15)
[2024-11-11] MEDS ORDERED: Fosphenytoin 500 MG.PE/10 ML SDV IM PRN (17:17)
[2024-11-11] MEDS ORDERED: Flumazenil 0.1 MG/ML 5 ML MDV IVPUSH PRN (17:17)
[2024-11-11] MEDS: Piperacillin/Tazobactam 4.5 GM in Sodium Chloride 0.9% 100 ML IV SCH (17:36)
[2024-11-12] MEDS: Albuterol 0.083% 2.5 MG/3 ML Neb Soln NEB PRN (03:06)
[2024-11-12] MEDS: LORazepam 2 MG/ML SDV ONE (04:56)
[2024-11-12] MEDS: VANCOmycin 1.25 GM/250 ML 1.25 GM in Premix Bag 1 BAG IV ONE (05:24)
[2024-11-12 05:33] LABS: BASE EXCESS ARTERIAL,POC -8 mmol/L ((-2)-3); HCO3 ARTERIAL,POC 17.9 mmol/L (21-28); O2 SATURATION ARTERIAL,POC 77.5 % (94-98); PCO2 ARTERIAL,POC 31 mmHg (35-48); PH ARTERIAL,POC 7.37 pH (7.35-7.45); PO2 ARTERIAL,POC 43 mmHg (83-108); TCO2 ARTERIAL,POC 17.2 mmol/L (22-29)
[2024-11-12 07:10] LABS: BASOPHILS PERCENT AUTO 0.1 % (0.2-1.2); EOSINOPHILS PERCENT AUTO 0.1 % (0.0-4.0); HEMATOCRIT 31.2 % (40.0-52.0); HEMOGLOBIN 10.4 g/dL (14.0-18.0); IMMATURE GRAN ABSOLUTE AUTO 0.06 x10^3/uL (0.00-0.07); LYMPHOCYTES ABSOLUTE AUTO 1.3 x10^3/uL (1.0-4.8); MEAN CORPUSCULAR HEMOGLOBIN 31.1 pg (26.0-32.0); MEAN CORPUSCULAR HGB CONC 33.3 g/dL (32.0-36.0); MEAN CORPUSCULAR VOLUME 93.4 fL (78.0-93.0); MONOCYTES ABSOLUTE AUTO 0.6 x10^3/uL (0.0-0.8); MONOCYTES PERCENT AUTO 4.4 % (2.0-11.0); NEUTROPHILS ABSOLUTE AUTO 12.6 x10^3/uL (1.8-7.7); PLATELET COUNT,PLT 151 x10^3/uL (130-400); RED BLOOD CELL COUNT 3.34 x10^6/uL (4.5-6.0); WHITE BLOOD CELL COUNT,WBC 14.6 x10^3/uL (4.0-10.0)
[2024-11-12 07:33] LABS: A/G RATIO 0.65; ALBUMIN 2.6 g/dL (3.4-5.0); BILIRUBIN TOTAL 0.5 mg/dL (0.2-1.0); CALCIUM 9.5 mg/dL (8.5-10.1); CREATININE 0.9 mg/dL (0.70-1.30); EST CRCL DRUG DOSING (CG) 104.23 mL/min; POTASSIUM,K 3.5 mmol/L (3.5-5.1); PROTEIN TOTAL,TP 6.6 g/dL (6.4-8.2)
[2024-11-12 07:37] LABS: ANION GAP 15.5 mmol/L (5-15)
[2024-11-12] MEDS: Enoxaparin 40 MG/0.4 ML Syringe SUBCUT SCH (08:34)
[2024-11-12] MEDS: Phenytoin 100 MG Cap.ER PO SCH ×2 (10:31→16:44)
[2024-11-12] MEDS: Iopamidol 755 Mg/ML 100 ML Bottle IVPUSH ONE (11:16)
[2024-11-12] MEDS: Lithium Carbonate 450 MG Tab.ER PO SCH (11:38)
[2024-11-12] MEDS ORDERED: Azithromycin 500 MG in Sodium Chloride 0.9% 250 ML IV SCH (14:25)
[2024-11-12] MEDS: VANCOmycin 1.25 GM/250 ML 1.25 GM in Premix Bag 1 BAG IV SCH (17:37)
[2024-11-12] MEDS: Lactulose Soln 10 GM/15 ML 15 ML UD Cup PO SCH (20:47)
[2024-11-12] MEDS: Cranberry 500 MG Cap PO SCH (20:48)
[2024-11-12] MEDS: Fish Oil/Omega-3 Fatty Acids 1 Gm Cap PO SCH (20:48)
[2024-11-12] MEDS: Baclofen 10 MG Tab PO SCH (20:48)
[2024-11-13 06:09] LABS: BASE EXCESS ARTERIAL,POC -14 mmol/L ((-2)-3); HCO3 ARTERIAL,POC 14.1 mmol/L (21-28); O2 SATURATION ARTERIAL,POC 98.4 % (94-98); PCO2 ARTERIAL,POC 35 mmHg (35-48); PH ARTERIAL,POC 7.21 pH (7.35-7.45); PO2 ARTERIAL,POC 134 mmHg (83-108); TCO2 ARTERIAL,POC 13.7 mmol/L (22-29)
[2024-11-13] MEDS: Furosemide 20 MG/2 ML VIAL IV ONE ×2 (07:03→10:23)
[2024-11-13 08:05] LABS: HEMATOCRIT 31.5 % (40.0-52.0); HEMOGLOBIN 10.3 g/dL (14.0-18.0); IMMATURE GRAN ABSOLUTE AUTO 0.05 x10^3/uL (0.00-0.07); MEAN CORPUSCULAR HEMOGLOBIN 31.6 pg (26.0-32.0); MEAN CORPUSCULAR HGB CONC 32.7 g/dL (32.0-36.0); MEAN CORPUSCULAR VOLUME 96.6 fL (78.0-93.0); MONOCYTES ABSOLUTE AUTO 0.6 x10^3/uL (0.0-0.8); MONOCYTES PERCENT AUTO 4.8 % (2.0-11.0); NEUTROPHILS PERCENT AUTO 86.8 % (50.0-80.0); PLATELET COUNT,PLT 127 x10^3/uL (130-400); RED BLOOD CELL COUNT 3.26 x10^6/uL (4.5-6.0); WHITE BLOOD CELL COUNT,WBC 12.7 x10^3/uL (4.0-10.0)
[2024-11-13 08:43] LABS: A/G RATIO 0.62; ALANINE AMINOTRANSFERASE,ALT < 6 U/L (16-63); ALBUMIN 2.6 g/dL (3.4-5.0); ALKALINE PHOSPHATASE 178 U/L (46-116); ANION GAP 26.4 mmol/L (5-15); ASPARTATE AMNIOTRANSFERASE,AST 12 U/L (15-37); BILIRUBIN TOTAL 0.7 mg/dL (0.2-1.0); BLOOD UREA NITROGEN,BUN 18 mg/dL (7-18); CALCIUM 9.5 mg/dL (8.5-10.1); CARBON DIOXIDE,CO2 16 mmol/L (21-32); CHLORIDE,CL 113 mmol/L (98-107); CREATININE 1.2 mg/dL (0.70-1.30); ESTIMATED GFR 78 mL/min (>=60); GLUCOSE RANDOM 100 mg/dL (70-99); POTASSIUM,K 3.4 mmol/L (3.5-5.1); PROTEIN TOTAL,TP 6.8 g/dL (6.4-8.2); SODIUM,NA 152 mmol/L (136-145)
[2024-11-13] MEDS: Propranolol 60 MG Cap.ER PO SCH (10:49)
[2024-11-13] MEDS: Mirabegron 25 MG Tab Extended Release PO SCH (10:49)
[2024-11-13] MEDS: D-Mannose 500 MG Cap PO SCH (10:49)
[2024-11-13] MEDS: Pantoprazole 40 MG Tab.CR PO SCH (10:49)
[2024-11-13] MEDS: Folic Acid 1 MG Tab PO SCH (10:49)
[2024-11-13] MEDS: FLUoxetine 20 MG Cap PO SCH (10:50)
[2024-11-13] MEDS: OLANZapine 10 MG Tab PO SCH (10:50)
[2024-11-13] MEDS: Ascorbic Acid 500 MG Tab PO SCH (10:50)
[2024-11-13] MEDS: LORazepam 2 MG/ML SDV IVPUSH PRN (12:21)
[2024-11-13] MEDS: Furosemide 40 MG/4 ML VIAL IVPUSH ONE (21:04)
[2024-11-13 21:52] LABS: BASE EXCESS ARTERIAL,POC -21 mmol/L ((-2)-3); HCO3 ARTERIAL,POC 8.9 mmol/L (21-28); PCO2 ARTERIAL,POC 27 mmHg (35-48); PH ARTERIAL,POC 7.12 pH (7.35-7.45); PO2 ARTERIAL,POC 79 mmHg (83-108); TCO2 ARTERIAL,POC 8.5 mmol/L (22-29)
[2024-11-14 07:51] LABS: BASE EXCESS ARTERIAL,POC -21 mmol/L ((-2)-3); HCO3 ARTERIAL,POC 8.7 mmol/L (21-28); PCO2 ARTERIAL,POC 26 mmHg (35-48); PH ARTERIAL,POC 7.13 pH (7.35-7.45); PO2 ARTERIAL,POC 105 mmHg (83-108); TCO2 ARTERIAL,POC 8.4 mmol/L (22-29)
[2024-11-14 08:38] LABS: BASOPHILS PERCENT AUTO 0.1 % (0.2-1.2); HEMATOCRIT 36.4 % (40.0-52.0); HEMOGLOBIN 11.3 g/dL (14.0-18.0); IMMATURE GRAN ABSOLUTE AUTO 0.13 x10^3/uL (0.00-0.07); LYMPHOCYTES ABSOLUTE AUTO 1.5 x10^3/uL (1.0-4.8); LYMPHOCYTES PERCENT AUTO 9.7 % (25.0-50.0); MEAN CORPUSCULAR HEMOGLOBIN 30.9 pg (26.0-32.0); MEAN CORPUSCULAR VOLUME 99.5 fL (78.0-93.0); MONOCYTES ABSOLUTE AUTO 1.1 x10^3/uL (0.0-0.8); MONOCYTES PERCENT AUTO 6.7 % (2.0-11.0); NEUTROPHILS PERCENT AUTO 82.7 % (50.0-80.0); PLATELET COUNT,PLT 162 x10^3/uL (130-400); RED BLOOD CELL COUNT 3.66 x10^6/uL (4.5-6.0); WHITE BLOOD CELL COUNT,WBC 15.7 x10^3/uL (4.0-10.0)
[2024-11-14 08:51] LABS: A/G RATIO 0.6; ALBUMIN 2.9 g/dL (3.4-5.0); ANION GAP 35.5 mmol/L (5-15); BILIRUBIN TOTAL 0.8 mg/dL (0.2-1.0); CALCIUM 9.6 mg/dL (8.5-10.1); EST CRCL DRUG DOSING (CG) 34.3 mL/min; POTASSIUM,K 3.5 mmol/L (3.5-5.1); PROTEIN TOTAL,TP 7.7 g/dL (6.4-8.2)
[2024-11-14 09:11] LABS: CREATININE 2.6 mg/dL (0.70-1.30)
[2024-11-14 09:40] LABS: VANCOMYCIN RANDOM 94.8 ug/mL (5.0-10.0)
[2024-11-14] MEDS: Sodium Chloride 0.45% 1,000 ML IV SCH (10:26)
[2024-11-14] MEDS: Sodium Chloride 0.45% 1,000 ML IV ONE (17:59)
[2024-11-14] MEDS ORDERED: Acetaminophen 325 MG Supp RECTAL PRN (19:45)
[2024-11-14] MEDS: LEVOCARNITINE 500 MG PO SCH (20:12)
[2024-11-15] MEDS ORDERED: Sodium Chloride 0.45% 500 ML IV SCH (05:15)
[2024-11-15] MEDS: Sodium Chloride 0.45% 1,000 ML IV SCH (05:51)
[2024-11-15 07:18] LABS: CALCIUM 8.4 mg/dL (8.5-10.1); EST CRCL DRUG DOSING (CG) 20.7 mL/min; POTASSIUM,K 3.3 mmol/L (3.5-5.1)
[2024-11-15 07:19] LABS: ANION GAP 25.3 mmol/L (5-15)
[2024-11-15 07:20] LABS: CREATININE 4.4 mg/dL (0.70-1.30)
[2024-11-15 07:34] LABS: BASOPHILS PERCENT AUTO 0.1 % (0.2-1.2); HEMATOCRIT 29.2 % (40.0-52.0); HEMOGLOBIN 9.2 g/dL (14.0-18.0); IMMATURE GRAN ABSOLUTE AUTO 0.06 x10^3/uL (0.00-0.07); LYMPHOCYTES ABSOLUTE AUTO 1.2 x10^3/uL (1.0-4.8); MEAN CORPUSCULAR HEMOGLOBIN 31.3 pg (26.0-32.0); MEAN CORPUSCULAR HGB CONC 31.5 g/dL (32.0-36.0); MEAN CORPUSCULAR VOLUME 99.3 fL (78.0-93.0); NEUTROPHILS ABSOLUTE AUTO 5.8 x10^3/uL (1.8-7.7); NEUTROPHILS PERCENT AUTO 72.1 % (50.0-80.0); PLATELET COUNT,PLT 137 x10^3/uL (130-400); RED BLOOD CELL COUNT 2.94 x10^6/uL (4.5-6.0)
[2024-11-15] MEDS ORDERED: Acetaminophen 650 MG Supp RECTAL PRN (08:55)
[2024-11-15] MEDS ORDERED: Morphine Oral Concentrate 20 MG/ML 30 ML Bottle PO PRN ×2 (08:55)
[2024-11-15] MEDS: Atropine 1% Ophth Soln 5 ML Bottle SL PRN (12:28)
== END 2024-11-15 14:45 | disposition expired | DRG 177 ==
LOC: VM.ED 13:16 → VM.MS 14:24
PROVIDERS: ADMIT Family Medicine; ATTEND Family Medicine
PROC: 3E03329 Introduction of Other Anti-infective into Peripheral Vein, Percutaneous Approach (ICD-10-PCS; principal; 2024-11-11)
PROC: 4A133R1 Monitoring of Arterial Saturation, Peripheral, Percutaneous Approach (ICD-10-PCS; 2024-11-11)
PROC: 5A0935A Assistance with Respiratory Ventilation, Less than 24 Consecutive Hours, High Flow/Velocity Cannula (ICD-10-PCS; 2024-11-11)
PROC: 5A09357 Assistance with Respiratory Ventilation, Less than 24 Consecutive Hours, Continuous Positive Airway Pressure (ICD-10-PCS; 2024-11-11)
PROC: 5A0935A Assistance with Respiratory Ventilation, Less than 24 Consecutive Hours, High Flow/Velocity Cannula (ICD-10-PCS; 2024-11-12)
PROC: 5A09357 Assistance with Respiratory Ventilation, Less than 24 Consecutive Hours, Continuous Positive Airway Pressure (ICD-10-PCS; 2024-11-14)
DX: J18.9 Pneumonia, unspecified organism (principal); J69.0 Pneumonitis due to inhalation of food and vomit; J96.01 Acute respiratory failure with hypoxia; F03.94 Unspecified dementia, unspecified severity, with anxiety; G82.20 Paraplegia, unspecified; E87.0 Hyperosmolality and hypernatremia; E87.29 Other acidosis; E44.0 Moderate protein-calorie malnutrition; N17.9 Acute kidney failure, unspecified; G93.40 Encephalopathy, unspecified; Z66 Do not resuscitate; F20.9 Schizophrenia, unspecified; E78.00 Pure hypercholesterolemia, unspecified; I10 Essential (primary) hypertension; K21.9 Gastro-esophageal reflux disease without esophagitis; N31.9 Neuromuscular dysfunction of bladder, unspecified; G40.909 Epilepsy, unspecified, not intractable, without status epilepticus; L89.159 Pressure ulcer of sacral region, unspecified stage; L89.899 Pressure ulcer of other site, unspecified stage; E87.6 Hypokalemia; D64.9 Anemia, unspecified; D69.6 Thrombocytopenia, unspecified; Z51.5 Encounter for palliative care; R40.1 Stupor; S06.9XAS Unspecified intracranial injury with loss of consciousness status unknown, sequela; Z97.8 Presence of other specified devices; Z79.899 Other long term (current) drug therapy; Z79.2 Long term (current) use of antibiotics; Z99.3 Dependence on wheelchair; Z86.16 Personal history of COVID-19; Z68.22 Body mass index [BMI] 22.0-22.9, adult
CPT/HCPCS: 36415; 36600; 71045; 71275; 80048; 80053; 80202; 82803; 82947; 83605; 83735; 83880; 84484; 85025; 87040; 87428-QW; 92610-GN; 94640; 94660; 94760; 96361; 96374; 99232; 99284; 99285-25; A9270-GY; J0456; J0696; J1165; J1642; J1650; J1940; J2060; J2543; J3372; J7030; J7120; Q3014; Q9967